=== PATIENT | female | born 1990 | race African-American/Black ===

== ENCOUNTER 2018-08-21 17:57 | Emergency (ER) | payer SELFPAY ==
--- NOTE | 2018-08-21 18:31 | EDPHY ---
General - History Smoking Status: Never smoked Time Seen by Provider: 08/21/18 18:30 Narrative: CLINICAL IMPRESSION: Prescription refills, anxiety ASSESSMENT/PLAN: Patient is a 28-year-old female with a history of PTSD and anxiety who presents to the emergency department requesting refills for medication that she was placed on while incarcerated. Patient is afebrile, mildly anxious however not toxic-appearing. Patient with no SI, no indication for M1 hold as she is here voluntarily. [facility] visited with the patient and provided resources. I discussed that we can refill a short-term amount of medications however she will need to establish care for her ongoing needs and possible need for change in medications. In regards to her dental pain, she was noted to have very mild pericoronitis on her lower posterior molars, no evidence of periapical abscess or infectious process. She was given her Wellbutrin and some ibuprofen in the emergency department and was given a short-term prescription for both her Wellbutrin and trazodone. I have also provided a list of outpatient resources for primary care. Conservative return precautions discussed-she will return for worsening dental pain, worsening anxiety, SI, difficulty swallowing or passing secretions or for any other concerning symptom. Patient verbalized understanding and she is in agreement with this plan. DIFFERENTIAL DX: Differential diagnosis including but not limited to depression, anxiety, SI, medication noncompliance, medication side effect ED COURSE: 1903: Discussed case with Dr. Espinoza, mental health full also evaluate the patient and provide resources. CHIEF COMPLAINT: Medication refill, anxiety HPI: Patient is a 28-year-old female with a history of PTSD and anxiety who presents to the emergency department requesting refills for medications that she was placed on while incarcerated. Patient was recently incarcerated at the [facility], was started on Wellbutrin and trazodone 2 weeks prior. She was discharged yesterday and was not provided a prescription for these medications. She checked into her alf house and they sent her here for evaluation and prescription refill. Patient reports longstanding history of PTSD and anxiety, never has been on medications before. She has been compliant with her medications up until yesterday as she was not provided a prescription. She endorses that she feels that the medications are not really helping her, she is still feeling anxious and having somewhat difficulty with sleeping. She denies significant insomnia, no history of SI or ross. She denies any SI today. Patient has otherwise been feeling well, denies any recent illness. She endorses longstanding history of lower dental pain and need for wisdom teeth removal. She denies any increased pain, difficulty swallowing, redness or drainage. PAST MEDICAL HISTORY: PTSD, anxiety, difficulty sleeping Family History: Noncontributory Social History: Denies illicit drug use, alcohol or cigarette smoking ROS: A full 10 point review of systems was negative except for those mentioned in HPI. PHYSICAL EXAM: General Appearance: The patient is well-appearing, mildly anxious however in no acute distress. HEENT: Normocephalic, atraumatic. External ears are normal. Nares are clear, oropharynx is clear. There is mild pericoronitis noted bilateral posterior molars; no evidence of periapical abscess, dental fracture/poor dentition or gingivitis. Uvula is midline, there is no tonsillar enlargement or exudate. Her phonation is normal and there is no stridor. Eyes: PERRLA, EOMI intact. Conjunctiva pink, no pallor or injection. Neck: Supple, nontender, no lymphadenopathy, no midline pain, FROM, no meningismus. Respiratory: There are no retractions, lungs are clear to auscultation. Cardiac: Regular rate and rhythm, no murmurs or gallops. Gastrointestinal: Abdomen is soft, nontender, bowel sounds normal, no masses/ hernia, no rigidity, guarding or focal peritoneal findings. Skin: Warm, dry, no rashes, no nodules on palpation. Psych: Normal affect, mildly anxious, not agitated. MEDICAL DECISION MAKING: Patient was seen independently. Secondary supervising physician at time of evaluation was Dr. Espinoza, I discussed this case with him however he did not evaluate this patient personally. Diagnosis: Anxiety, medication refill. New, requires workup Summary: See Assessment and Plan for summary of ED visit Clinical lab tests: Not applicable. Independent visualization of images, tracing, or specimens: Not applicable. Decision to obtain medical records or history from someone other than the patient: No Review / Summarize previous medical records: Yes, alf records Discussed patient with another provider: Yes, Dr. Espinoza Patient Progress: Stable, discharged. (Kaila Rowe) Medical Decision Making: I did not see this patient while she was in the emergency department. However her care was discussed with the PA while the patient was in the department. I agree with treatment plan and management (Aron Espinoza) - Objective Vital Signs: Initial Vital Signs Temperature (C) 36.9 C 08/21/18 18:04 Heart Rate 69 08/21/18 18:04 Respiratory Rate 16 08/21/18 18:04 Blood Pressure 124/86 H 08/21/18 18:04 O2 Sat (%) 95 08/21/18 18:04 O2 Delivery Mode Room Air Allergies/Adverse Reactions: No Known Allergies Allergy (Unverified 08/21/18 18:08) Home Medications: Medication Instructions Recorded Wellbutrin 75mg (*) 08/21/18 buPROPion [Wellbutrin 75mg (*)] 75 mg PO BID #10 tab 08/21/18 traZODone 08/21/18 traZODone [traZODONE 100MG (*)] 100 mg PO HS PRN #5 tab 08/21/18 Medications Given: Discontinued Medications Bupropion HCl (Wellbutrin) 75 mg PO ONCE ONE Stop: 08/21/18 19:48 Last Admin: 08/21/18 20:01 Dose: 75 mg Ibuprofen (Motrin) 400 mg PO EDNOW ONE Stop: 08/21/18 19:48 Last Admin: 08/21/18 19:57 Dose: 400 mg Departure - Departure Disposition: Home, Routine, Self-Care Clinical Impression: Anxiety, Medication refill Condition: Good Instructions: Bupropion (By mouth), Trazodone (By mouth), Generalized Anxiety Disorder (ED) Additional Instructions: DISCHARGE INSTRUCTIONS FROM YOUR DOCTOR Thank you for visiting our emergency department today. Please keep in mind that discharge from the emergency department does not mean that there is nothing wrong - it simply means that we have not identified an emergency condition that requires further evaluation or treatment in the hospital. You should always plan to follow up with primary care for re-evaluation of your condition in the next 2-3 days. You have been provided a short course refill of your medications, it is imperative that you establish care with Mental Health and a primary care provider for ongoing medication needs. It is important that you follow up with a dentist. For pain control: You may take Tylenol, I recommend 500-1000 mg every 6-8 hours as needed. Take with food and a full glass of water. Stop taking if this is upsetting her stomach. Do not exceed 4000 mg in a 24 hr period. You may also take ibuprofen, recommend 400 mg every 6 hr. Take with food and a full glass of water. Stop taking if this upsets her stomach. Do not exceed 2400 mg in a 24 hr period. Rest, healthy/regular sleep schedule, push fluids, healthy diet, regular exercise. Attempt to reduce stress. Pursue pleasurable, healthy activities. Surround yourself with loving, supportive, healthy friends and family. Stop smoking as soon as possible. Avoid drugs and alcohol. Re-establish counseling to help work through issues and develop good coping and behavioral strategies for stress reduction and symptom control. Establish care with a primary care physician. See our list of resources. Return for increased or unmanageable anxiety, severe depression, thoughts or plans to hurt yourself or someone else, for chest pain, shortness of breath, dizziness, fainting, rapid or irregular heart beat, sweating, vomiting, abdominal pain, back pain, tremor, seizure, mental status changes, or for any other new, worsening or worrisome symptoms. People present with illnesses and injuries in different ways, and it is always possible that we have missed something. You may always return for re-evaluation if symptoms worsen or if they are not improving or if you develop new/different symptoms. Again, thank you for choosing our emergency department. We hope that you feel better. [facility] has walk-in appointments for the homeless at the following days/locations. No appointment is needed. Thursday 8-10 am @ [facility] 11 AM-1 PM @ [facility] Thursday 8-10:30 AM @ [facility] Thursday 8-10 AM @ [facility] 2-4 PM @ [facility] Thursday 8-10 AM @ [facility] Referrals: NONE *PRIMARY CARE P,. [Primary Care Provider] - As per Instructions Prescriptions: buPROPion [Wellbutrin 75mg (*)] 75 mg PO BID #10 tab traZODone [traZODONE 100MG (*)] 100 mg PO HS PRN #5 tab PRN Reason: Sleep/Insomnia
[2018-08-21 19:33] VITALS: BP 119/90
[2018-08-21] MEDS ORDERED: IBUPROFEN 200 MG TAB PO ONE (19:47)
[2018-08-21] MEDS ORDERED: buPROPion 75 MG TAB PO ONE (19:47)
--- NOTE | 2018-08-21 23:33 | ASMTLCPROG ---
Notes Note: Notes: PT was recently discharged from skilled nursing but not given a prescription for the meds she was taking. Pt came for a refil and med adjustment. Per physician request, provided out-patient resources. Date Signed: 08/21/2018 11:32 PM Electronically Signed By:Evelio Zelaya
== END 2018-08-21 20:25 | disposition home or self-care (01) ==
DX: Z76.0 Encounter for issue of repeat prescription (principal); F41.9 Anxiety disorder, unspecified

== ENCOUNTER 2018-09-20 21:54 | Emergency (ER) | payer MEDICAID ==
[2018-09-20] MEDS ORDERED: ACETAMINOPHEN 500 MG TAB PO ONE (22:28)
[2018-09-20] MEDS ORDERED: IBUPROFEN 600 MG TAB PO ONE (22:28)
--- NOTE | 2018-09-20 22:50 | EDPHY ---
H & P Stated Complaint: FEVER, COUGH THROAT PAIN , ACHES ALL OVER Time Seen by Provider: 09/20/18 22:28 HPI/ROS: HPI The patient presents with sore throat, cough, rhinorrhea, left ear pain, fever. Her symptoms began last night with a sore throat when she went to bed. She awoke this morning and had ongoing sore throat and then developed a nonproductive cough, clear rhinorrhea, then a fever. She took ibuprofen about 6 hr ago. Her fever persists so she comes in for further care. She now is complaining of a diffuse aching headache which is moderate in severity. She says that when she coughs she has an aching pain in her anterior chest which is diffuse. She is living at a skilled nursing house and believe she could of been exposed to sick people. She did not have a flu vaccine this year.. REVIEW OF SYSTEMS 10 systems were reviewed and negative with the exception of the elements mentioned in the history of present illness. PMHx: Asthma, history of PTSD, attention deficit hyperactivity disorder Soc Hx: Resides at a skilled nursing house currently, nonsmoker, no primary care doctor PHYSICAL General Appearance: Alert, no distress Eyes: Pupils equal and round no pallor or injection ENT, Mouth: Mucous membranes moist, posterior pharynx is injected, TMs bilaterally are slightly erythematous Respiratory: There are no retractions, lungs are clear to auscultation, no chest wall tenderness Cardiovascular: Tachycardic rate and regular rhythm Gastrointestinal: Abdomen is soft and non-tender, no masses, bowel sounds normal Neurological: A&O, moves all extremities Skin: Warm and dry, no rashes Musculoskeletal: Neck is supple non tender Extremities: symmetrical, full range of motion Psychiatric: Patient is oriented X 3, there is no agitation Source: Patient Exam Limitations: No limitations - Personal History LMP (Females 10-55): 1-7 Days Ago Current Tetanus/Diphtheria Vaccine: Yes Current Tetanus Diphtheria and Acellular Pertussis (TDAP): Yes - Medical/Surgical History Hx Asthma: Yes Hx Chronic Respiratory Disease: No Hx Diabetes: No Hx Cardiac Disease: No Hx Renal Disease: No Hx Cirrhosis: No Hx Alcoholism: No Hx HIV/AIDS: No Hx Splenectomy or Spleen Trauma: No Other PMH: ptsd, adhd, anxiety, leilani, asthma - Social History Smoking Status: Never smoked Constitutional: Initial Vital Signs Temperature (C) 39.3 C H 09/20/18 22:23 Heart Rate 110 H 09/20/18 22:23 Respiratory Rate 20 09/20/18 22:23 Blood Pressure 142/75 H 09/20/18 22:23 O2 Sat (%) 96 09/20/18 22:23 O2 Delivery Mode Room Air Allergies/Adverse Reactions: No Known Allergies Allergy (Unverified 09/20/18 22:26) Home Medications: Medication Instructions Recorded Wellbutrin 75mg (*) 08/21/18 buPROPion [Wellbutrin 75mg (*)] 75 mg PO BID #10 tab 08/21/18 traZODone 08/21/18 traZODone [traZODONE 100MG (*)] 100 mg PO HS PRN #5 tab 08/21/18 Oseltamivir Phosphate [Tamiflu 75 75 mg PO BID 5 Days cap 09/20/18 mg (*)] Medical Decision Making Differential Diagnosis: This is a 28-year-old female with asthma, currently residing at a skilled nursing house who presents with fever, upper respiratory tract symptoms, chest pain. On exam , she is febrile, tachycardic. I suspect influenza, I doubt pneumonia given clear breath sounds bilaterally, I doubt strep pharyngitis. In the emergency department, patient received ibuprofen, Tylenol. Rapid flu was performed. This was positive for flu A., given 1 day of symptoms and underlying asthma I will treat with Tamiflu. I have discussed other supportive measures. She will be discharged from the emergency department. Other differential diagnoses considered include pneumonia, upper respiratory tract infection. - Data Points Laboratory Results: 09/20/18 22:37 Nasal Influenza A PCR FLU A DETECTED H (NEGATIVE) Nasal Influenza B PCR NEGATIVE FOR FLU B (NEGATIVE) Medications Given: Discontinued Medications Acetaminophen (Tylenol) 1,000 mg PO EDNOW ONE Stop: 09/20/18 22:29 Last Admin: 09/20/18 22:33 Dose: 1,000 mg Ibuprofen (Motrin) 600 mg PO EDNOW ONE Stop: 09/20/18 22:29 Last Admin: 09/20/18 22:34 Dose: 600 mg Oseltamivir Phosphate (Tamiflu) 75 mg PO EDNOW ONE Stop: 09/20/18 23:19 Last Admin: 09/20/18 23:22 Dose: 75 mg Departure - Departure Disposition: Home, Routine, Self-Care Clinical Impression: Influenza A Condition: Good Instructions: Influenza (ED) Additional Instructions: Please make sure to drink plenty of fluids. I recommend you take ibuprofen 400 mg with acetaminophen 650 mg every 6 hr as needed for fever. Return to the emergency department if your worse in any way. Referrals: [facility],. [Clinic] - As per Instructions Stand Alone Forms: Work Excuse Prescriptions: Oseltamivir Phosphate [Tamiflu 75 mg (*)] 75 mg PO BID 5 Days cap
[2018-09-20] MEDS ORDERED: OSELTAMIVIR PHOSPHATE 75 MG CAP PO ONE (23:18)
[2018-09-20 23:53] VITALS: BP 116/74
== END 2018-09-20 23:51 | disposition home or self-care (01) ==
DX: J10.1 Influenza due to other identified influenza virus with other respiratory manifestations (principal); J45.909 Unspecified asthma, uncomplicated